=== PATIENT | male | born 1995 | race Caucasian/White ===

== ENCOUNTER 2016-05-23 16:36 | Inpatient (IN) | payer BC, OTHER ==
[2016-05-23 17:49] VITALS: BMI 28.2
--- NOTE | 2016-05-23 20:39 | HP ---
COWS - Scale Resting Pulse: 0= [place] 80 or Below Sweatin=Flushed/Facial Moisture Restless Observation: 3= Extraneous Movement Pupil Size: 1= Pupils >than Normal Bone or Joint Aches: 4=Acute Joint/Muscle Pain Runny Nose/ Eye Tearin= None GI Upset > 30mins: 2= Nausea/Diarrhea Tremor Observation: 2= Slight Tremor Visible Yawning Observation: 0= None Anxiety or Irritability: 2=Irritable/Anxious Goose Flesh Skin: 0=Smooth Skin COWS Score: 16 Admission [facility] Chief Complaint: WITHDRAWAL SX'S Allergies/Adverse Reactions: Allergies Allergy/AdvReac Type Severity Reaction Status Date / Time No Known Allergies Allergy Verified 02/01/16 11:14 History of Present Illness: 20 Y.O. MALE KNOWN TO [facility] HERE FOR ADMISSION TO DETOX FOR OPIOID DEPENDENCE. REPORTS LONGEST CLEAN TIME IS 2 MONTHS LAST ADMIT 01/2016 Exam Limitations: No Limitations - Ebola screening Have you traveled outside of the country in the last 21 days: No Have you had contact with anyone from an Ebola affected area: No Have you been sick,other than usual withdrawal symptoms: No Do you have a fever: No - Review of Systems Constitutional: Chills, Malaise, Night Sweats EENT: reports: No Symptoms Reported Respiratory: reports: No Symptoms reported Cardiac: reports: No Symptoms Reported GI: reports: Nausea : reports: No Symptoms Reported Musculoskeletal: reports: Back Pain Integumentary: reports: Rash (ON PENIS) Neuro: reports: No Symptoms reported Endocrine: reports: No Symptoms Reported Hematology: reports: No Symptoms Reported Psychiatric: reports: other (ADHD, ANXIETY, INSOMNIA) Other Systems: Reviewed and Negative Patient History - Patient Medical History Hx Anemia: No Hx Asthma: No Hx Chronic Obstructive Pulmonary Disease (COPD): No Hx Cancer: No Hx Cardiac Disorders: No Hx Congestive Heart Failure: No Hx Hypertension: No Hx Hypercholesterolemia: No Hx Pacemaker: No HX Cerebrovascular Accident: No Hx Seizures: No Hx Dementia: No Hx Diabetes: No Hx Gastrointestinal Disorders: No Hx Liver Disease: No Hx Genitourinary Disorders: No Hx Sexually Transmitted Disorders: No Hx Renal Disease (ESRD): No Hx Thyroid Disease: No Hx Human Immunodeficiency Virus (HIV): No Hx Hepatitis C: No Hx Depression: No Hx Suicide Attempt: No Hx Bipolar Disorder: No Hx Schizophrenia: No Other Medical History: ANXIETY, INSOMNIA, ADHD DENIES MEDS - Patient Surgical History Past Surgical History: No Hx Neurologic Surgery: No Hx Cataract Extraction: No Hx Cardiac Surgery: No Hx Lung Surgery: No Hx Breast Surgery: No Hx Breast Biopsy: No Hx Abdominal Surgery: No Hx Appendectomy: No Hx Cholecystectomy: No Hx Genitourinary Surgery: No Hx Section: No Hx Orthopedic Surgery: No Anesthesia Reaction: No - PPD History Previous Implant?: Yes Documented Results: Negative w/o proof Implanted On Prior [facility] Admission?: No Date: 10/27/15 Results: 0mm PPD to be Administered?: No - Smoking Cessation Smoking history: Current every day smoker Have you smoked in the past 12 months: No Aproximately how many cigarettes per day: 2 If you are a former smoker, when did you quit?: 2014 Cigars Per Day: 0 Hx Chewing Tobacco Use: No Initiated information on smoking cessation: Yes 'Breaking Loose' booklet given: 05/23/16 - Substance & Tx. History Hx Alcohol Use: No Hx Substance Use: Yes Substance Use Type: Heroin Hx Substance Use Treatment: Yes ([facility]) - Substances Abused Heroin Route: Injection Frequency: Daily Amount used: 7-10 bags Age of first use: 18 Date of Last Use: 05/23/16 Family Disease History - Family Disease History Family Disease History: CA: Mother (BREAST) Admission Physical Exam S - Vital Signs Vital Signs: Vital Signs - 24 hr 05/23/16 17:48 Temperature 96.9 F L Pulse Rate 73 Respiratory 18 Rate Blood Pressure 122/68 - Physical General Appearance: Yes: Mild Distress, Anxious HEENTM: Yes: EOMI, Normocephalic, Normal Voice, JORDYN, Pharynx Normal Respiratory: Yes: Chest Non-Tender, Lungs Clear, Normal Breath Sounds, No Respiratory Distress, No Accessory Muscle Use Neck: Yes: No masses,lesions,Nodules, Supple, Trachea in good position Breast: Yes: Breast Exam Deferred Cardiology: Yes: Regular Rhythm, Regular Rate, S1, S2 Abdominal: Yes: Normal Bowel Sounds, Non Tender, Flat, Soft Genitourinary: Yes: Within Normal Limits Back: Yes: Normal Inspection Musculoskeletal: Yes: full range of Motion, Gait Steady, Back pain (REPORTED) Extremities: Yes: Normal Capillary Refill, Normal Range of Motion, Non-Tender Neurological: Yes: cut to length operator II-XII NML intact, Fully Oriented, Alert, Motor Strength 5/5 Integumentary: Yes: Normal Color, Warm, Moist, Rash (REPORTS RING WORM RASH TO PENIS), Other (CAT SCRATCH FAUST) Lymphatic: Yes: Within Normal Limits - Diagnostic (1) Opioid dependence with withdrawal Current Visit: Yes Status: Acute (2) Chronic back pain Current Visit: Yes Status: Chronic Qualifiers: Back pain location: low back pain Back pain laterality: bilateral Sciatica presence: without sciatica Qualified Code(s): M54.5 - Low back pain; G89.29 - Other chronic pain Comment: S/P [facility] 2012 (3) Nicotine dependence Current Visit: Yes Status: Chronic Qualifiers: Nicotine product type: cigarettes Substance use status: uncomplicated Qualified Code(s): F17.210 - Nicotine dependence, cigarettes, uncomplicated Cleared for Admission [facility] - Detox or Rehab [facility] Level of Care: Medically Managed Detox Regimen/Protocol: Methadone [facility] Breath Alcohol Content Breath Alcohol Content: 0 Urine Drug Screen - Results Drug Screen Negative: No Urine Drug Screen Results: OPI-Opiates
[2016-05-23] MEDS ORDERED: MAGNESIUM CITRATE 300 ML BOTTLE PO PRN (20:46)
[2016-05-23] MEDS ORDERED: MAGNESIUM HYDROX 2400MG/30ML ORAL SUSPENSION 30 ML CUP PO PRN (20:46)
[2016-05-23] MEDS ORDERED: guaiFENesin/D-METHORPHAN HB 10 ML UNIT-DOSE CUPS PO PRN (20:46)
[2016-05-23] MEDS ORDERED: diphenhydrAMINE HCL 50 MG CAPSULE PO PRN (20:46)
[2016-05-23] MEDS ORDERED: LOPERAMIDE HCL 2 MG CAPSULE PO PRN (20:46)
[2016-05-23] MEDS ORDERED: IBUPROFEN 400 MG TABLET (FP) PO PRN (20:46)
[2016-05-23] MEDS ORDERED: P-EPHED 60MG/TRIPROLIDI 2.5MG TABLET PO PRN (20:46)
[2016-05-23] MEDS ORDERED: MENTHOL/PHENOL 1 EACH UD MM PRN (20:46)
[2016-05-23] MEDS ORDERED: METHADONE HCL 10 MG TABLET (FOR DETOX USE ONLY) PO ONE ×2 (20:46→23:00)
[2016-05-23] MEDS ORDERED: ACETAMINOPHEN 325 MG TABLET (FP) PO PRN (20:46)
[2016-05-23] MEDS: diazePAM 5 MG TABLET PO PRN (22:43)
[2016-05-23] MEDS: THIAMINE HCL 100 MG TABLET (FP) PO SCH (22:43)
[2016-05-23] MEDS: CYCLOBENZAPRINE HCL 10 MG TABLET (FP) PO PRN (22:43)
[2016-05-23] MEDS: NICOTINE 14 MG/24 HOURS TOPICAL PATCH TD SCH (22:51)
[2016-05-23 23:02] LABS: URINE APPEARANCE CLEAR; URINE BILIRUBIN NEGATIVE (NEGATIVE); URINE BLOOD NEGATIVE (NEGATIVE); URINE COLOR YELLOW; URINE GLUCOSE (UA) NEGATIVE (NEGATIVE); URINE KETONE NEGATIVE (NEGATIVE); URINE LEUK ESTERASE NEGATIVE (NEGATIVE); URINE NITRITE NEGATIVE (NEGATIVE); URINE PROTEIN NEGATIVE (NEGATIVE); URINE UROBILINOGEN NEGATIVE E.U./dl (0.2-1.0)
[2016-05-24] MEDS: diazePAM 5 MG TABLET PO PRN ×4 (06:57→19:22)
[2016-05-24] MEDS ORDERED: METHADONE HCL 10 MG TABLET (FOR DETOX USE ONLY) PO ONE (10:00)
[2016-05-24 10:06] LABS: MCH 29.6 pg (25.7-33.7); MCHC 33.4 g/dl (32.0-35.9); MEAN CELL VOLUME 88.5 fl (80-96); MEAN PLT VOLUME 8.6 fl (7.5-11.1); PLATELET COUNT 198 K/MM3 (134-434); RDW 13.2 % (11.9-15.9); WHITE BLOOD COUNT 5.3 K/mm3 (4.0-10.0)
[2016-05-24] MEDS: PRENATAL VITAMINS W/ FOLIC ACID TABLET (FP) PO SCH (10:24)
[2016-05-24] MEDS: CYCLOBENZAPRINE HCL 10 MG TABLET (FP) PO PRN (10:25)
[2016-05-24] MEDS: NICOTINE POLACRILEX 2 MG GUM BC PRN ×3 (10:25→14:49)
[2016-05-24] MEDS: NICOTINE 14 MG/24 HOURS TOPICAL PATCH TD SCH (10:25)
[2016-05-24 10:34] LABS: ALBUMIN 3.4 g/dl (3.4-5.0); ALK PHOS 77 U/L (45-117); ANION GAP 9 (8-16); BILIRUBIN,TOTAL 0.3 mg/dL (0.2-1.0); CALCIUM 8.6 mg/dL (8.5-10.1); CO2 29 mmol/L (21-32); CREATININE 1.1 mg/dL (0.7-1.3); GLUCOSE,RANDOM 97 mg/dL (74-106); SGOT/AST 14 U/L (15-37); SGPT/ALT 20 U/L (12-78); TOT PROT 5.9 g/dl (6.4-8.2)
[2016-05-24] MEDS ORDERED: CYCLOBENZAPRINE HCL 10 MG TABLET (FP) PO SCH (11:00)
--- NOTE | 2016-05-24 11:10 | PN ---
BHS COWS - Scale Resting Pulse: 1= [place] 81-100 Sweatin=Flushed/Facial Moisture Restless Observation: 1= Difficult to Sit Still Pupil Size: 1= Pupils >than Normal Bone or Joint Aches: 2= Severe Diffuse Aches Runny Nose/ Eye Tearin= Nasal Congestion GI Upset > 30mins: 2= Nausea/Diarrhea Tremor Observation of Outstretched Hands: 1= Tremor [place], Not Seen Yawning Observation: 0= None Anxiety or Irritability: 2=Irritable/Anxious Goose Flesh Skin: 0=Smooth Skin COWS Score: 13 BHS Progress Note (SOAP) Subjective: interrupted sleep, sweats, bodyaches, leg pains Objective: 05/24/16 11:08 Vital Signs Temperature 96.4 F L 05/24/16 09:59 Pulse Rate 99 H 05/24/16 09:59 Respiratory Rate 18 05/24/16 09:59 Blood Pressure 140/54 05/24/16 09:59 O2 Sat by Pulse Oximetry (%) Laboratory Tests 05/23/16 05/24/16 05/24/16 22:25 07:00 07:00 WBC 5.3 D RBC 4.60 Hgb 13.6 Hct 40.7 MCV 88.5 MCHC 33.4 RDW 13.2 Plt Count 198 MPV 8.6 Sodium 142 Potassium 4.0 Chloride 104 Carbon Dioxide 29 Anion Gap 9 BUN 16 D Creatinine 1.1 Creat Clearance w eGFR > 60 Random Glucose 97 Calcium 8.6 Total Bilirubin 0.3 D AST 14 L ALT 20 Alkaline Phosphatase 77 Total Protein 5.9 L Albumin 3.4 Urine Color Yellow Urine Appearance Clear Urine pH 6.0 Ur Specific [place] 1.024 Urine Protein Negative Urine Glucose (UA) Negative Urine Ketones Negative Urine Blood Negative Urine Nitrite Negative Urine Bilirubin Negative Urine Urobilinogen Negative Ur Leukocyte Esterase Negative pt aox3 in nad ambulating 05/24/16 11:09 Assessment: 05/24/16 11:09 withdrawl sx;s Plan: cont. detox increase fluids fexeril 10mg tid /prn
--- NOTE | 2016-05-24 11:22 | CONSULT ---
[facility] Psychiatric Consult - Data Date of interview: 05/24/16 Admission source: [facility] Identifying data: This is 20 years old male with no psychiatric hospitalization history intoxicated with Opioids and Nicotine Substance Abuse History: - Smoking Cessation. Smoking history: Current every day smoker. Have you smoked in the past 12 months: No. Aproximately how many cigarettes per day: 2. If you are a former smoker, when did you quit?: 2015. Cigars Per Day: 0. Hx Chewing Tobacco Use: No. Initiated information on smoking cessation: Yes. 'Breaking Loose' booklet given: 05/23/16. - Substance & Tx. History. Hx Alcohol Use: No. Hx Substance Use: Yes. Substance Use Type : Heroin. Hx Substance Use Treatment: Yes ([facility]). - Substances Abused. Heroin. Route: Injection. Frequency: Daily. Amount used: 7-10 bags. Age of first use: 18. Date of Last Use: 05/23/16 Medical History: LBP, Cellulitis history Psychiatric History: Patient reports history of ADHD, Asthma, reports insomnia and muscle pain. Reports taking prior to admission: Flexeril 10mg po bid. Ambien 10mg po qhs Physical/Sexual Abuse/Trauma History: Denies Additional Comment: Flexeril 10mg po bid. Ambien 10mg po qhs Mental Status Exam - Mental Status Exam Alert and Oriented to: Person Cognitive Function: Fair Patient Appearance: Well Groomed Mood: Apprehensive Affect: Appropriate Patient Behavior: Cooperative Speech Pattern: Appropriate Voice Loudness: Normal Thought Process: Goal Oriented Thought Disorder: Being Controlled Hallucinations: Denies Suicidal Ideation: Denies Homicidal Ideation: Denies Insight/Judgement: Fair Sleep: Difficulty falling asleep Appetite: Fair Muscle strength/Tone: Mild Hypertonicity Gait/Station: Normal Additional Comments: Flexeril 10mg po bid. Ambien 10mg po qhs Psychiatric Findings - Problem List ([place] 1, 2,3) (1) Opioid dependence with withdrawal Current Visit: Yes Status: Acute (2) Nicotine dependence Current Visit: Yes Status: Chronic Qualifiers: Nicotine product type: cigarettes Substance use status: uncomplicated Qualified Code(s): F17.210 - Nicotine dependence, cigarettes, uncomplicated (3) Cellulitis of right arm Current Visit: No Status: Acute (4) ADHD (attention deficit hyperactivity disorder) Current Visit: No Status: Chronic Qualifiers: Attention deficit-hyperactivity disorder type: unspecified Qualified Code(s): F90.9 - Attention-deficit hyperactivity disorder, unspecified type (5) Adderall use disorder, mild Current Visit: No Status: Chronic (6) Anxiety Current Visit: No Status: Suspected (7) Drug-induced mood disorder Current Visit: Yes Status: Acute - Initial Treatment Plan Initial Treatment Plan: Flexeril 10mg po bid. Ambien 10mg po qhs
--- NOTE | 2016-05-24 16:41 | EKG ---
Test Reason : Blood Pressure : / mmHG Vent. Rate : 076 BPM Atrial Rate : 076 BPM P-R Int : 156 ms QRS Dur : 096 ms QT Int : 384 ms P-R-T Axes : 067 -07 033 degrees QTc Int : 432 ms NORMAL SINUS RHYTHM NORMAL ECG NO PREVIOUS ECGS AVAILABLE Confirmed by JERE COOK MD ([id number]) on 05/24/2016 4:41:38 PM Referred By: Willis Sharpe Confirmed By:JERE COOK MD
[2016-05-24 19:44] LABS: HIV 1 & 2 AB NEGATIVE; HIV 1 AGp24 NEGATIVE
[2016-05-24] MEDS: ZOLPIDEM TARTRATE 10 MG TABLET (PARK CARE ONLY) PO PRN (22:29)
[2016-05-24] MEDS: THIAMINE HCL 100 MG TABLET (FP) PO SCH (22:29)
[2016-05-25] MEDS: diazePAM 5 MG TABLET PO PRN ×4 (07:58→22:11)
[2016-05-25] MEDS ORDERED: METHADONE HCL 5 MG TABLET (FOR DETOX USE ONLY) PO ONE (10:00)
[2016-05-25] MEDS: PRENATAL VITAMINS W/ FOLIC ACID TABLET (FP) PO SCH (10:35)
[2016-05-25] MEDS: NICOTINE 14 MG/24 HOURS TOPICAL PATCH TD SCH (10:36)
[2016-05-25] MEDS: hydrOXYzine PAMOATE 50 MG CAPSULE (FP) PO PRN (10:37)
[2016-05-25] MEDS: CYCLOBENZAPRINE HCL 10 MG TABLET (FP) PO PRN (10:37)
--- NOTE | 2016-05-25 11:27 | PN ---
BHS COWS - Scale Resting Pulse: 1= [place] 81-100 Sweatin=Flushed/Facial Moisture Restless Observation: 1= Difficult to Sit Still Pupil Size: 0= Normal to Room Light Bone or Joint Aches: 2= Severe Diffuse Aches Runny Nose/ Eye Tearin= None GI Upset > 30mins: 0= None Tremor Observation of Outstretched Hands: 2= Slight Tremor Visible Yawning Observation: 2= >3x During Session Anxiety or Irritability: 2=Irritable/Anxious Goose Flesh Skin: 0=Smooth Skin COWS Score: 12 BHS Progress Note (SOAP) Subjective: irritable shakes sweats interrupted sleep Objective: 05/25/16 11:27 Vital Signs Temperature 98.1 F 05/25/16 10:09 Pulse Rate 83 05/25/16 10:09 Respiratory Rate 18 05/25/16 10:09 Blood Pressure 128/72 05/25/16 10:09 O2 Sat by Pulse Oximetry (%) Laboratory Tests 05/23/16 05/24/16 05/24/16 22:25 07:00 07:00 WBC 5.3 D RBC 4.60 Hgb 13.6 Hct 40.7 MCV 88.5 MCHC 33.4 RDW 13.2 Plt Count 198 MPV 8.6 Sodium 142 Potassium 4.0 Chloride 104 Carbon Dioxide 29 Anion Gap 9 BUN 16 D Creatinine 1.1 Creat Clearance w eGFR > 60 Random Glucose 97 Calcium 8.6 Total Bilirubin 0.3 D AST 14 L ALT 20 Alkaline Phosphatase 77 Total Protein 5.9 L Albumin 3.4 Urine Color Yellow Urine Appearance Clear Urine pH 6.0 Ur Specific [place] 1.024 Urine Protein Negative Urine Glucose (UA) Negative Urine Ketones Negative Urine Blood Negative Urine Nitrite Negative Urine Bilirubin Negative Urine Urobilinogen Negative Ur Leukocyte Esterase Negative RPR Titer HIV 1&2 Antibody Screen HIV P24 Antigen 05/24/16 05/24/16 07:00 10:20 WBC RBC Hgb Hct MCV MCHC RDW Plt Count MPV Sodium Potassium Chloride Carbon Dioxide Anion Gap BUN Creatinine Creat Clearance w eGFR Random Glucose Calcium Total Bilirubin AST ALT Alkaline Phosphatase Total Protein Albumin Urine Color Urine Appearance Urine pH Ur Specific [place] Urine Protein Urine Glucose (UA) Urine Ketones Urine Blood Urine Nitrite Urine Bilirubin Urine Urobilinogen Ur Leukocyte Esterase RPR Titer Nonreactive HIV 1&2 Antibody Screen Negative HIV P24 Antigen Negative awake/alert ambulating no acute distress Assessment: 05/25/16 11:27 withdrawal sx Plan: continue detox increase fluids
[2016-05-25] MEDS: ZOLPIDEM TARTRATE 10 MG TABLET (PARK CARE ONLY) PO PRN (22:11)
[2016-05-25] MEDS: THIAMINE HCL 100 MG TABLET (FP) PO SCH (22:11)
[2016-05-26] MEDS: diazePAM 5 MG TABLET PO PRN ×3 (08:42→17:32)
--- NOTE | 2016-05-26 09:25 | PN ---
S Progress Note (SOAP) Subjective: ALERT,IRRITABLE,ANXIOUS,INTERRUPTED SLEEP,TREMOR,PAIN IN THE BODY AND BACK Objective: 05/26/16 09:23 Vital Signs Temperature 97.4 F L 05/26/16 06:41 Pulse Rate 77 05/26/16 06:41 Respiratory Rate 18 05/26/16 06:41 Blood Pressure 123/75 05/26/16 06:41 O2 Sat by Pulse Oximetry (%) EKG NSR,NORMAL ECG Laboratory Last Values WBC 5.3 K/mm3 (4.0-10.0) D 05/24/16 07:00 RBC 4.60 M/mm3 (4.00-5.60) 05/24/16 07:00 Hgb 13.6 GM/dL (11.7-16.9) 05/24/16 07:00 Hct 40.7 % (35.4-49) 05/24/16 07:00 MCV 88.5 fl (80-96) 05/24/16 07:00 MCHC 33.4 g/dl (32.0-35.9) 05/24/16 07:00 RDW 13.2 % (11.9-15.9) 05/24/16 07:00 Plt Count 198 K/MM3 (134-434) 05/24/16 07:00 MPV 8.6 fl (7.5-11.1) 05/24/16 07:00 Sodium 142 mmol/L (136-145) 05/24/16 07:00 Potassium 4.0 mmol/L (3.5-5.1) 05/24/16 07:00 Chloride 104 mmol/L (98-107) 05/24/16 07:00 Carbon Dioxide 29 mmol/L (21-32) 05/24/16 07:00 Anion Gap 9 (8-16) 05/24/16 07:00 BUN 16 mg/dL (7-18) D 05/24/16 07:00 Creatinine 1.1 mg/dL (0.7-1.3) 05/24/16 07:00 Creat Clearance w eGFR > 60 (>60) 05/24/16 07:00 Random Glucose 97 mg/dL (74-106) 05/24/16 07:00 Calcium 8.6 mg/dL (8.5-10.1) 05/24/16 07:00 Total Bilirubin 0.3 mg/dL (0.2-1.0) D 05/24/16 07:00 AST 14 U/L (15-37) L 05/24/16 07:00 ALT 20 U/L (12-78) 05/24/16 07:00 Alkaline Phosphatase 77 U/L (45-117) 05/24/16 07:00 Total Protein 5.9 g/dl (6.4-8.2) L 05/24/16 07:00 Albumin 3.4 g/dl (3.4-5.0) 05/24/16 07:00 Urine Color Yellow 05/23/16 22:25 Urine Appearance Clear 05/23/16 22:25 Urine pH 6.0 (5.0-8.0) 05/23/16 22:25 Ur Specific [place] 1.024 (1.001-1.035) 05/23/16 22:25 Urine Protein Negative (NEGATIVE) 05/23/16 22:25 Urine Glucose (UA) Negative (NEGATIVE) 05/23/16 22:25 Urine Ketones Negative (NEGATIVE) 05/23/16 22:25 Urine Blood Negative (NEGATIVE) 05/23/16 22:25 Urine Nitrite Negative (NEGATIVE) 05/23/16 22:25 Urine Bilirubin Negative (NEGATIVE) 05/23/16 22:25 Urine Urobilinogen Negative E.U./dl (0.2-1.0) 05/23/16 22:25 Ur Leukocyte Esterase Negative (NEGATIVE) 05/23/16 22:25 RPR Titer Nonreactive (NONREACTIVE) 05/24/16 07:00 HIV 1&2 Antibody Screen Negative 05/24/16 10:20 HIV P24 Antigen Negative 05/24/16 10:20 Assessment: 05/26/16 09:24 WITHDRAWAL SYMPTOM Plan: CONTINUE DETOX
[2016-05-26] MEDS ORDERED: METHADONE HCL 5 MG TABLET (FOR DETOX USE ONLY) PO ONE (10:00)
[2016-05-26] MEDS: CYCLOBENZAPRINE HCL 10 MG TABLET (FP) PO PRN ×2 (10:20→22:20)
[2016-05-26] MEDS: PRENATAL VITAMINS W/ FOLIC ACID TABLET (FP) PO SCH (10:20)
[2016-05-26] MEDS: hydrOXYzine PAMOATE 50 MG CAPSULE (FP) PO PRN (10:20)
[2016-05-26] MEDS: NICOTINE 14 MG/24 HOURS TOPICAL PATCH TD SCH (10:21)
[2016-05-26] MEDS: cloNIDine HCL 0.1 MG TABLET PO SCH ×2 (11:18→22:20)
[2016-05-26] MEDS: MAG HYDROX/AL HYDROX/SIMETH 30 ML UNIT-DOSE CUP PO PRN (21:14)
[2016-05-26] MEDS: THIAMINE HCL 100 MG TABLET (FP) PO SCH (22:20)
[2016-05-26] MEDS: ZOLPIDEM TARTRATE 10 MG TABLET (PARK CARE ONLY) PO PRN (22:20)
[2016-05-27] MEDS ORDERED: METHADONE HCL 10 MG TABLET (FOR DETOX USE ONLY) PO ONE (10:00)
--- NOTE | 2016-05-27 10:00 | PN ---
S Progress Note (SOAP) Subjective: ALERT,IRRITABLE,INTERRUPTED SLEEP Objective: 05/27/16 09:59 Vital Signs Temperature 97.1 F L 05/27/16 06:36 Pulse Rate 74 05/27/16 06:36 Respiratory Rate 18 05/27/16 06:36 Blood Pressure 104/64 05/27/16 06:36 O2 Sat by Pulse Oximetry (%) WITHDRAWAL SYMPTOM Assessment: 05/27/16 09:59 WITHDRAWAL SYMPTOM Plan: CONTINUE DETOX ,DISCHARGE IN AM
[2016-05-27] MEDS: NICOTINE 14 MG/24 HOURS TOPICAL PATCH TD SCH (10:13)
[2016-05-27] MEDS: hydrOXYzine PAMOATE 50 MG CAPSULE (FP) PO PRN (10:13)
[2016-05-27] MEDS: cloNIDine HCL 0.1 MG TABLET PO SCH ×2 (10:13→22:15)
[2016-05-27] MEDS: PRENATAL VITAMINS W/ FOLIC ACID TABLET (FP) PO SCH (10:13)
[2016-05-27] MEDS: CYCLOBENZAPRINE HCL 10 MG TABLET (FP) PO PRN ×2 (10:13→22:15)
[2016-05-27] MEDS: MAG HYDROX/AL HYDROX/SIMETH 30 ML UNIT-DOSE CUP PO PRN ×2 (12:28→19:07)
[2016-05-27] MEDS: THIAMINE HCL 100 MG TABLET (FP) PO SCH (22:15)
[2016-05-27] MEDS: ZOLPIDEM TARTRATE 10 MG TABLET (PARK CARE ONLY) PO PRN (22:17)
[2016-05-28] MEDS ORDERED: METHADONE HCL 5 MG TABLET (FOR DETOX USE ONLY) PO ONE (06:00)
[2016-05-28 06:17] VITALS: BP 118/62; PULSE 50; TEMP 97.2
--- NOTE | 2016-07-17 20:15 | DS ---
[facility] Detox Discharge Summary Admission Date: 05/23/16 Discharge Date: 05/28/16 - History Present History: Opioid Dependence Additional Comments: follow up [facility] and pmd for medical problem Pertinent Past History: chronic low back pain nicotine dependence - Physical Exam Results Vital Signs: Vital Signs Temperature 97.2 F L 05/28/16 06:00 Pulse Rate 50 L 05/28/16 06:00 Respiratory Rate 18 05/28/16 06:00 Blood Pressure 118/62 05/28/16 06:00 O2 Sat by Pulse Oximetry (%) Pertinent Admission Physical Exam Findings: withdrawal symptom - Treatment Hospital Course: Detox Protocol Followed, Detoxed Safely, Responded well, Discharged Condition Good Patient has Accepted a Rehab Referral to: declined - Medication Discharge Medications: Ambulatory Orders Cyclobenzaprine HCl [Flexeril -] 10 mg PO BID 05/23/16 Zolpidem Tartrate [Ambien] 10 mg PO HS 05/23/16 Zolpidem Tartrate [Ambien] 10 mg PO HS PRN #14 tablet MDD 10 05/24/16 - Diagnosis (1) Opioid dependence with withdrawal Status: Acute (2) Chronic back pain Status: Chronic Qualifiers: Back pain location: low back pain Back pain laterality: bilateral Sciatica presence: without sciatica Qualified Code(s): M54.5 - Low back pain; G89.29 - Other chronic pain (3) Nicotine dependence Status: Chronic Qualifiers: Nicotine product type: cigarettes Substance use status: uncomplicated Qualified Code(s): F17.210 - Nicotine dependence, cigarettes, uncomplicated - AMA Did Patient Leave Against Medical Advice: No
== END 2016-05-28 07:00 | disposition home or self-care (01) | DRG 897 ==
LOC: YASAS 16:36 → Y6N 21:08
PROVIDERS: ADMIT Internal Medicine Addiction Medicine; ATTEND Internal Medicine Addiction Medicine
PROC: HZ2ZZZZ Detoxification Services for Substance Abuse Treatment (ICD-10-PCS; principal; 2016-05-23)
DX: F11.23 Opioid dependence with withdrawal (principal); L03.113 Cellulitis of right upper limb; F17.210 Nicotine dependence, cigarettes, uncomplicated; F19.24 Other psychoactive substance dependence with psychoactive substance-induced mood disorder; F90.9 Attention-deficit hyperactivity disorder, unspecified type; F41.9 Anxiety disorder, unspecified; G47.00 Insomnia, unspecified; M54.5 Low back pain; G89.29 Other chronic pain
CPT/HCPCS: 36415; 80053; 81003; 85027; 86593; 87389; 93005; 93010